=== PATIENT | male | born 1985 ===

== ENCOUNTER 2021-01-16 20:16 | Emergency (ER) | payer OTHER, MEDICAID, SELFPAY ==
--- NOTE | 2021-01-16 20:28 | PC.NURSE ---
pt notified triage nurse that he was leaving. Patient notified that we are here 05/01 and to come back if he has worsening symptoms or would like to be seen at a later time/date.
== END 2021-01-16 21:01 | disposition left against medical advice (07) ==
LOC: ANHED 20:56
DX: Z53.21 Procedure and treatment not carried out due to patient leaving prior to being seen by health care provider (principal)
CPT/HCPCS: 99199